=== PATIENT | female | born 1980 | race African-American/Black ===

== ENCOUNTER 2020-12-31 20:54 | Emergency (ER) | payer OTHER ==
[2020-12-31 21:18] VITALS: BP 135/81; PULSE 89; TEMP 98; BMI 23.6
[2020-12-31 22:20] LABS: BASO % 3.1 % (0-2.0); HEMATOCRIT 41.3 % (32.4-45.2); LYMPH % 31.4 % (8-40); MCH 32.1 pg (25.7-33.7); MCHC 33.9 g/dl (32.0-36.0); MEAN CELL VOLUME 94.8 fl (80-96); MEAN PLT VOLUME 7.6 fl (7.5-11.1); NEUT % 60.5 % (42.8-82.8); PLATELET COUNT 270 10^3/uL (134-434); RBC 4.35 M/mm3 (3.60-5.2); RDW 12.6 % (11.6-15.6); WHITE BLOOD COUNT 6.8 K/mm3 (4.0-10.0)
[2020-12-31 22:24] LABS: INR 0.95 (0.83-1.09); PROTHROMBIN TIME (PATIENT) 11.7 SEC (9.7-13.0)
[2020-12-31 22:27] LABS: ACTIVATED PTT 27.3 SECONDS (25.2-36.5)
[2020-12-31 22:39] LABS: CALCIUM 9.3 mg/dL (8.5-10.1)
[2020-12-31 22:40] LABS: ALBUMIN 3.8 g/dl (3.4-5.0); BLOOD UREA NITROGEN 8.5 mg/dL (7-18)
[2020-12-31 22:43] LABS: CREATININE 0.7 mg/dL (0.55-1.3)
[2020-12-31 22:44] LABS: BILIRUBIN,TOTAL 0.3 mg/dL (0.2-1)
[2020-12-31 22:45] LABS: TOT PROT 7.4 g/dl (6.4-8.2)
== END 2020-12-31 23:28 | disposition home or self-care (01) ==
LOC: JER 20:54
DX: S80.11XA Contusion of right lower leg, initial encounter (principal)
CPT/HCPCS: 36415; 71046-TC-FY; 80053; 85025; 85610; 85730; 93005; 93010; 99285-25

== ENCOUNTER 2021-05-21 03:33 | Emergency (ER) | payer OTHER ==
[2021-05-21 03:47] VITALS: BP 111/77; PULSE 16; TEMP 97.9; BMI 23.5
[2021-05-21] MEDS ORDERED: AZITHROMYCIN 500 MG TABLET PO ONE (04:04)
[2021-05-21] MEDS ORDERED: AZITHROMYCIN 250 MG TABLET ONE (04:07)
== END 2021-05-21 04:16 | disposition home or self-care (01) ==
LOC: FER 03:33
DX: H73.012 Bullous myringitis, left ear (principal); J20.9 Acute bronchitis, unspecified; H10.32 Unspecified acute conjunctivitis, left eye
CPT/HCPCS: 87651; 99283-25

== ENCOUNTER 2021-09-05 14:32 | Emergency (ER) | payer OTHER ==
[2021-09-05 14:47] VITALS: TEMP 97.9; BMI 22.8
[2021-09-05] MEDS ORDERED: MAG HYDROX/AL HYDROX/SIMETH 30 ML UNIT-DOSE CUP PO ONE (17:15)
[2021-09-05] MEDS ORDERED: ACETAMINOPHEN 500 MG TABLET (FP) PO ONE (17:15)
[2021-09-05] MEDS ORDERED: FAMOTIDINE 20 MG/50 ML IVPB 20 MG/50 ML MG IVPB ONE ×2 (17:15→17:22)
[2021-09-05] MEDS ORDERED: SODIUM CHLORIDE 1,000 ML IV STA (17:15)
[2021-09-05] MEDS ORDERED: ACETAMINOPHEN 325 MG TABLET (FP) ONE (17:21)
[2021-09-05] MEDS ORDERED: MAG HYDROX/AL HYDROX/SIMETH 30 ML UNIT-DOSE CUP ONE (17:22)
[2021-09-05 17:45] LABS: PH,URINE 5.5 (5.0-8.0); URINE APPEARANCE CLEAR; URINE BILIRUBIN NEGATIVE (NEGATIVE); URINE COLOR YELLOW; URINE GLUCOSE (UA) NEGATIVE (NEGATIVE); URINE KETONE 2+ (NEGATIVE); URINE LEUK ESTERASE NEGATIVE (NEGATIVE); URINE NITRITE NEGATIVE (NEGATIVE); URINE PROTEIN NEGATIVE (NEGATIVE); URINE UROBILINOGEN 0.2 mg/dL (0.2-1.0)
[2021-09-05 18:18] LABS: BASO % 0.4 % (0-2.0); EOS % 0.3 % (0-4.5); HEMATOCRIT 38.3 % (32.4-45.2); HEMOGLOBIN 13.4 GM/dL (10.7-15.3); LYMPH % 39.1 % (8-40); MCH 32.2 pg (25.7-33.7); MCHC 34.9 g/dl (32.0-36.0); MEAN CELL VOLUME 92.4 fl (80-96); MEAN PLT VOLUME 7.9 fl (7.5-11.1); MONO % 5.2 % (3.8-10.2); PLATELET COUNT 279 10^3/uL (134-434); RBC 4.15 M/mm3 (3.60-5.2); RDW 12.5 % (11.6-15.6); WHITE BLOOD COUNT 6.5 K/mm3 (4.0-10.0)
[2021-09-05 18:39] VITALS: BP 109/71; PULSE 69
[2021-09-05 18:44] LABS: CALCIUM 9.8 mg/dL (8.5-10.1)
[2021-09-05 18:45] LABS: ALBUMIN 3.8 g/dl (3.4-5.0); BLOOD UREA NITROGEN 14.3 mg/dL (7-18)
[2021-09-05 18:48] LABS: CREATININE 0.8 mg/dL (0.55-1.3)
[2021-09-05 18:49] LABS: BILIRUBIN,TOTAL 0.4 mg/dL (0.2-1); TOT PROT 7.6 g/dl (6.4-8.2)
== END 2021-09-05 20:19 | disposition home or self-care (01) ==
LOC: JER 14:32
PROC: 3E033GC Introduction of Other Therapeutic Substance into Peripheral Vein, Percutaneous Approach (ICD-10-PCS; principal; 2021-09-05)
PROC: 3E0337Z Introduction of Electrolytic and Water Balance Substance into Peripheral Vein, Percutaneous Approach (ICD-10-PCS; 2021-09-05)
DX: A09 Infectious gastroenteritis and colitis, unspecified (principal)
CPT/HCPCS: 36415; 80053; 81003; 83690; 84703; 85025; 99284-25

== ENCOUNTER 2022-01-02 20:29 | Emergency (ER) | payer OTHER ==
[2022-01-02 20:35] VITALS: BP 110/77; PULSE 69; TEMP 98; BMI 23.0
[2022-01-02] MEDS ORDERED: CEPHALEXIN MONOHYDRATE 500 MG CAPSULE (UD) PO ONE (21:00)
[2022-01-02] MEDS ORDERED: CEPHALEXIN MONOHYDRATE 500 MG CAPSULE (UD) ONE (21:13)
[2022-01-02 23:35] LABS: THROAT:GRP A STREP NOT DETECTED (NOTDETECTED)
== END 2022-01-02 21:39 | disposition home or self-care (01) ==
LOC: JER 20:29
DX: L03.115 Cellulitis of right lower limb (principal); B34.9 Viral infection, unspecified
CPT/HCPCS: 0241U-QW; 87651; 99283-25

== ENCOUNTER 2022-10-05 22:45 | Emergency (ER) | payer OTHER ==
[2022-10-05 22:51] VITALS: BP 119/78; PULSE 90; RESP 18; TEMP 97.9; BMI 23.0
[2022-10-06 00:35] LABS: URINE APPEARANCE CLEAR; URINE BILIRUBIN NEGATIVE (NEGATIVE); URINE COLOR YELLOW; URINE GLUCOSE (UA) NEGATIVE (NEGATIVE); URINE KETONE NEGATIVE (NEGATIVE); URINE LEUK ESTERASE NEGATIVE (NEGATIVE); URINE NITRITE NEGATIVE (NEGATIVE); URINE PROTEIN NEGATIVE (NEGATIVE); URINE UROBILINOGEN 0.2 mg/dL (0.2-1.0)
[2022-10-06 01:19] LABS: BASO % 0.4 % (0-2.0); EOS % 0.9 % (0-4.5); HEMATOCRIT 37.9 % (32.4-45.2); HEMOGLOBIN 13.1 GM/dL (10.7-15.3); LYMPH % 41.6 % (8-40); MCH 31.7 pg (25.7-33.7); MCHC 34.5 g/dl (32.0-36.0); MEAN CELL VOLUME 91.9 fl (80-96); MEAN PLT VOLUME 8.1 fl (7.5-11.1); MONO % 5.3 % (3.8-10.2); NEUT % 51.8 % (42.8-82.8); PLATELET COUNT 281 10^3/uL (134-434); RBC 4.12 M/mm3 (3.60-5.2); RDW 12.9 % (11.6-15.6); WHITE BLOOD COUNT 6.8 K/mm3 (4.0-10.0)
[2022-10-06 01:27] LABS: ALBUMIN 3.6 g/dl (3.4-5.0); BLOOD UREA NITROGEN 10.1 mg/dL (7-18); CALCIUM 9.3 mg/dL (8.5-10.1)
[2022-10-06 01:30] LABS: CREATININE 0.7 mg/dL (0.55-1.3)
[2022-10-06 01:32] LABS: BILIRUBIN,TOTAL 0.2 mg/dL (0.2-1); TOT PROT 7.4 g/dl (6.4-8.2)
[2022-10-06 01:35] LABS: N-TERMINAL BNP 101.9 pg/ml (5-125)
== END 2022-10-06 03:13 | disposition home or self-care (01) ==
LOC: JER 22:45
DX: R22.43 Localized swelling, mass and lump, lower limb, bilateral (principal); Z20.822 Contact with and (suspected) exposure to COVID-19
CPT/HCPCS: 0241U-QW; 36415; 71045-TC-FY; 80053; 81003; 83880; 84484; 84703; 85025; 87086; 93971-TC; 99285-25

== ENCOUNTER 2024-01-29 20:16 | Emergency (ER) | payer OTHER ==
[2024-01-29 20:35] VITALS: BP 123/74; PULSE 84; RESP 18; TEMP 97.9; BMI 23.0
[2024-01-29] MEDS ORDERED: ONDANSETRON 4 MG/2 ML VIAL ONE (22:18)
[2024-01-29] MEDS: SODIUM CHLORIDE 0.9% 500 ML INFUS.BAG IV ONE (22:25)
[2024-01-29] MEDS: ONDANSETRON 4 MG/2 ML VIAL IVPUSH ONE (22:26)
[2024-01-29 22:27] LABS: BASO % 0.4 % (0-2.0); EOS % 0.8 % (0-4.5); HEMOGLOBIN 13.1 GM/dL (10.7-15.3); LYMPH % 38.4 % (8-40); MCH 31.5 pg (25.7-33.7); MCHC 34.4 g/dl (32.0-36.0); MEAN CELL VOLUME 91.5 fl (80-96); MEAN PLT VOLUME 7.9 fl (7.5-11.1); MONO % 6.1 % (3.8-10.2); NEUT % 54.3 % (42.8-82.8); PLATELET COUNT 300 10^3/uL (134-434); RBC 4.16 M/mm3 (3.60-5.2); RDW 12.9 % (11.6-15.6); WHITE BLOOD COUNT 7.6 K/mm3 (4.0-10.0)
[2024-01-29 22:48] LABS: POTASSIUM 5.1 mmol/L (3.5-5.1)
[2024-01-29 22:50] LABS: CALCIUM 9.2 mg/dL (8.5-10.1)
[2024-01-29 22:51] LABS: ALBUMIN 3.7 g/dl (3.4-5.0); BLOOD UREA NITROGEN 12.4 mg/dL (7-18); MAGNESIUM 2.2 mg/dL (1.8-2.4)
[2024-01-29 22:54] LABS: CREATININE 0.7 mg/dL (0.55-1.3)
[2024-01-29 22:55] LABS: BILIRUBIN,TOTAL 0.2 mg/dL (0.2-1); TOT PROT 7.4 g/dl (6.4-8.2)
== END 2024-01-29 23:50 | disposition home or self-care (01) ==
LOC: JER 20:16
PROC: 3E033GC Introduction of Other Therapeutic Substance into Peripheral Vein, Percutaneous Approach (ICD-10-PCS; principal; 2024-01-29)
DX: G56.03 Carpal tunnel syndrome, bilateral upper limbs (principal); F41.9 Anxiety disorder, unspecified; R53.83 Other fatigue; R11.0 Nausea; R20.2 Paresthesia of skin; R53.1 Weakness
CPT/HCPCS: 36415; 80053; 83735; 85025; 86850; 86900; 86901; 99285-25

== ENCOUNTER 2024-01-31 20:16 | Emergency (ER) | payer OTHER ==
[2024-01-31 20:21] VITALS: BP 120/68; PULSE 82; RESP 20; TEMP 97.8; BMI 23.0
== END 2024-02-01 00:50 | disposition home or self-care (01) ==
LOC: JER 20:16
DX: M79.89 Other specified soft tissue disorders (principal); R11.0 Nausea; M25.572 Pain in left ankle and joints of left foot
CPT/HCPCS: 73610-TC-LT-FY; 73630-TC-LT; 93971-TC; 99284-25